=== PATIENT | male | born 1955 | race American Indian/Alaskan Native ===

== ENCOUNTER 2016-05-29 16:27 | Inpatient (IN) | payer MEDICARE ==
[2016-05-29 17:19] LABS: Basophils % (Auto) 1.1 % (0.0-1.8); Eosinophils % (Auto) 1.7 % (0.0-4.3); Mean Corpuscular HGB Conc 31 % (32-34); Platelet Count 165 K/mm3 (140-440); Red Blood Count 5.73 M/mm3 (3.65-5.03); Red Cell Distribution Width 19.1 % (13.2-15.2); White Blood Count 7.4 K/mm3 (4.5-11.0)
[2016-05-29] MEDS ORDERED: BABY ASPIRIN PO ONE (17:19)
[2016-05-29 17:20] LABS: Anion Gap 20 mmol/L; Blood Urea Nitrogen 12 mg/dL (9-20); Calcium 8.9 mg/dL (8.4-10.2); Carbon Dioxide 26 mmol/L (22-30); Chloride 103.4 mmol/L (98-107); Glucose 62 mg/dL (75-100); Hematocrit 37.5 % (35.5-45.6); Hemoglobin 11.4 gm/dl (11.8-15.2); Mean Corpuscular Hemoglobin 20 pg (28-32); Mean Corpuscular Volume 66 fl (84-94); Potassium 4.1 mmol/L (3.6-5.0); Sodium 145 mmol/L (137-145)
--- NOTE | 2016-05-29 17:24 | Emergency Department Report ---
Chief Complaint: Chest Pain Stated Complaint: CHEST PAINS Time Seen by Provider: 05/29/16 17:18 - HPI History of Present Illness: PT c/o chest pain x 2 hours. PT states he was riding in a van when the pain started. PT states he has a hx of htn and is currently on lisinopril. + tobacco, + dm type 2. PT states he had a nuclear stress test "years ago" PT states he is from [place] but he is in a treatment program here. PT states he just got a local PCP. - ROS Review of Systems: + headache + cp + sob - dizziness + nausea - swelling to extremities - Exam Vital Signs: Vital Signs 05/29/16 16:37 Temperature 97.8 F Pulse Rate 73 Respiratory 22 Rate Blood Pressure 189/109 O2 Sat by Pulse 100 Oximetry Physical Exam: PT looks well, non toxic. RRR lungs diminished gulshan MSE screening note: Focused history and physical exam performed. Due to findings the following was ordered: ED Medical Decision Making - Lab Data Result diagrams: 05/29/16 16:49 ED Disposition for MSE Condition: Stable
[2016-05-29 18:22] LABS: INR 0.9 (0.87-1.13)
[2016-05-29 18:23] LABS: Partial Thromboplastin Time 30.8 Sec. (24.2-36.6)
[2016-05-29] MEDS ORDERED: MORPHINE IV ONE (19:25)
[2016-05-29] MEDS ORDERED: NITRO-BID 2% TP ONE (19:25)
[2016-05-29] MEDS ORDERED: ZOFRAN IV ONE (19:26)
--- NOTE | 2016-05-29 19:27 | Emergency Department Report ---
ED Chest Pain HPI - General Chief Complaint: Chest Pain Stated Complaint: CHEST PAINS Time Seen by Provider: 05/29/16 17:18 Source: patient Mode of arrival: Ambulatory Limitations: No Limitations - History of Present Illness Initial Comments: 60-year-old male with a past medical history diabetes him hypertension, and tobacco use presents to the hospital with complaints of chest pain. Symptoms started 1 hour prior to arrival while sitting in a van. Described as it elevated sitting on his chest with a mild sharp component. Significant pain lasted for several seconds but now patient has a persistent heaviness to his chest. Positive so she shortness of breath without nausea, vomiting, or diaphoresis. Patient does not take aspirin daily today received aspirin in the ED. Patient reports that he had a stress test and cardiac cath performed about 5 years ago and denies receiving a stent or angioplasty. 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 He denies history of PE/DVT, calf tenderness, edema, or recent prolonged travel. - Related Data Home Medications Medication Instructions Recorded Confirmed Last Taken Norvasc 10 mg PO DAILY 07/13/14 02/15/16 Unknown Esomeprazole Magnesium [NexIUM] 40 mg PO QDAY 02/15/16 02/15/16 02/15/16 FLUoxetine [PROzac] 20 mg PO QDAY 02/15/16 02/15/16 02/15/16 Lisinopril [Zestril TAB] 1 tab PO CHRISTOPH 02/15/16 02/15/16 02/15/16 metFORMIN [Glucophage] 500 mg PO QDAY 02/15/16 02/15/16 02/15/16 traZODone [Desyrel] 100 mg PO QHS 02/15/16 02/15/16 02/14/16 Previous Rx's Medication Instructions Recorded Last Taken Type Albuterol Sulfate [Ventolin HFA] 2 puff IH Q4H PRN #1 hfa.aer.ad 07/13/14 Unknown Rx Hydralazine HCl [Apresoline TAB] 50 mg PO BID #60 tab 02/15/16 Unknown Rx Lisinopril/Hydrochlorothiazide 1 tab PO QDAY #30 tab 02/15/16 Unknown Rx [Zestoretic 20-12.5 mg] Allergies Allergy/AdvReac Type Severity Reaction Status Date / Time No Known Allergies Allergy Unverified 07/13/14 07:02 CIPRIANO score - Cipriano Score Age > 65: (0) No Aspirin use within the Past 7 Days: (0) No 3 or more CAD Risk Factors: (1) Yes 2 or more Angina events in past 24 hrs: (0) No Known CAD with more than 50% Stenosis: (0) No Elevated Cardiac Markers: (0) No ST Deviation Greater than 0.5mm: (0) No CIPRIANO Score: 1 ED Review of Systems ROS: Stated complaint: CHEST PAINS Other details as noted in HPI Comment: All other systems reviewed and negative Other: Constitutional: No fevers chills Eyes: No eye pain visual changes ENT: No ear pain or throat pain Neck: Denies pain Respiratory: Denies cough wheezing s Cardiovascular: as per hpi GI: Denies abdominal pain, nausea, vomiting, diarrhea : Denies dysuria, urinary frequency, or urgency Musculoskeletal: Denies back pain, joint swelling Skin: Denies rash, lesions, erythema Neurologic: Denies headache, numbness, weakness Psychiatric: Denies suicidal ideation, hallucinations Hematological/lymphatic: Denies easy bruising, lymphadenopathy ED Past Medical Hx - Past Medical History Previous Medical History?: Yes Hx Hypertension: Yes Hx Diabetes: Yes - Surgical History Past Surgical History?: Yes Additional Surgical History: Hernia repair. gallbladder. turk - Social History Smoking Status: Current Every Day Smoker Substance Use Type: None - Medications Home Medications: Home Medications Medication Instructions Recorded Confirmed Last Taken Type Albuterol Sulfate [Ventolin HFA] 2 puff IH Q4H PRN #1 hfa.aer.ad 07/13/14 Unknown Rx Norvasc 10 mg PO DAILY 07/13/14 02/15/16 Unknown History Esomeprazole Magnesium [NexIUM] 40 mg PO QDAY 02/15/16 02/15/16 02/15/16 History FLUoxetine [PROzac] 20 mg PO QDAY 02/15/16 02/15/16 02/15/16 History Hydralazine HCl [Apresoline TAB] 50 mg PO BID #60 tab 02/15/16 Unknown Rx Lisinopril [Zestril TAB] 1 tab PO CHRISTOPH 02/15/16 02/15/16 02/15/16 History Lisinopril/Hydrochlorothiazide 1 tab PO QDAY #30 tab 02/15/16 Unknown Rx [Zestoretic 20-12.5 mg] metFORMIN [Glucophage] 500 mg PO QDAY 02/15/16 02/15/16 02/15/16 History traZODone [Desyrel] 100 mg PO QHS 02/15/16 02/15/16 02/14/16 History ED Physical Exam - General Limitations: No Limitations - Other Other exam information: General: No limitations, patient is alert in no acute distress Head exam: Atraumatic, normocephalic Eyes exam: Normal appearance, pupils equal reactive to light, extraocular movements intact ENT: Moist mucous membrane, normal oropharynx Neck exam: Normal inspection, full range of motion, no meningismus nontender Respiratory exam: Clear to auscultation bilateral, no wheezes, rales, crackles Cardiovascular: Normal rate and rhythm, normal heart sounds Abdomen: Soft, nondistended, and nontender, with normal bowel sounds, no rebound, or guarding Extremity: Full range of motion normal inspection no deformity Back: Normal Inspection, full range of motion, no tenderness Neurologic: Alert, oriented x3, cranial nerves intact, no motor or sensory deficit Psychiatric: normal affect, normal mood Skin: Warm, dry, intact ED Course Vital Signs 05/29/16 05/29/16 05/29/16 16:37 17:16 17:30 Temperature 97.8 F Pulse Rate 73 74 82 Respiratory 22 14 16 Rate Blood Pressure 189/109 O2 Sat by Pulse 100 95 Oximetry 05/29/16 05/29/16 05/29/16 17:46 18:00 18:16 Temperature Pulse Rate 80 73 82 Respiratory 17 14 18 Rate Blood Pressure 183/83 O2 Sat by Pulse 97 94 95 Oximetry 05/29/16 05/29/16 05/29/16 18:27 18:30 18:46 Temperature Pulse Rate 93 H 78 Respiratory 18 15 Rate Blood Pressure 173/81 O2 Sat by Pulse 94 100 Oximetry 05/29/16 05/29/16 05/29/16 19:00 19:16 19:30 Temperature Pulse Rate 68 71 71 Respiratory Rate Blood Pressure O2 Sat by Pulse 100 100 100 Oximetry 05/29/16 19:45 Temperature Pulse Rate 72 Respiratory 23 Rate Blood Pressure 178/110 O2 Sat by Pulse 100 Oximetry - Reevaluation(s) Reevaluation #1: 05/29/16 19:45 Patient stable. Nitro paste, morphine, and Zofran ordered ED Medical Decision Making - Lab Data Result diagrams: 05/29/16 16:49 05/29/16 16:49 Lab Results 05/29/16 05/29/16 05/29/16 Range/Units 16:49 16:49 17:47 WBC 7.4 (4.5-11.0) K/mm3 RBC 5.73 H (3.65-5.03) M/mm3 Hgb 11.4 L (11.8-15.2) gm/dl Hct 37.5 (35.5-45.6) % MCV 66 L (84-94) fl MCH 20 L (28-32) pg MCHC 31 L (32-34) % RDW 19.1 H (13.2-15.2) % Plt Count 165 (140-440) K/mm3 Lymph % (Auto) 28.2 (13.4-35.0) % Leslie % (Auto) 13.0 H (0.0-7.3) % Eos % (Auto) 1.7 (0.0-4.3) % Baso % (Auto) 1.1 (0.0-1.8) % Lymph # 2.1 (1.2-5.4) K/mm3 Leslie # 1.0 H (0.0-0.8) K/mm3 Eos # 0.1 (0.0-0.4) K/mm3 Baso # 0.1 (0.0-0.1) K/mm3 Seg Neutrophils % 56.0 (40.0-70.0) % Seg Neutrophils # 4.1 (1.8-7.7) K/mm3 PT (12.2-14.9) Sec. INR (0.87-1.13) APTT (24.2-36.6) Sec. Sodium 145 (137-145) mmol/L Potassium 4.1 (3.6-5.0) mmol/L Chloride 103.4 (98-107) mmol/L Carbon Dioxide 26 (22-30) mmol/L Anion Gap 20 mmol/L BUN 12 (9-20) mg/dL Creatinine 1.1 (0.8-1.5) mg/dL Estimated GFR > 60 ml/min BUN/Creatinine Ratio 10.90 % Glucose 62 L (75-100) mg/dL Calcium 8.9 (8.4-10.2) mg/dL Troponin T < 0.010 (0.00-0.029) ng/mL NT-Pro-B Natriuret Pep 79.16 (0-900) pg/mL 05/29/16 Range/Units 17:47 WBC (4.5-11.0) K/mm3 RBC (3.65-5.03) M/mm3 Hgb (11.8-15.2) gm/dl Hct (35.5-45.6) % MCV (84-94) fl MCH (28-32) pg MCHC (32-34) % RDW (13.2-15.2) % Plt Count (140-440) K/mm3 Lymph % (Auto) (13.4-35.0) % Leslie % (Auto) (0.0-7.3) % Eos % (Auto) (0.0-4.3) % Baso % (Auto) (0.0-1.8) % Lymph # (1.2-5.4) K/mm3 Leslie # (0.0-0.8) K/mm3 Eos # (0.0-0.4) K/mm3 Baso # (0.0-0.1) K/mm3 Seg Neutrophils % (40.0-70.0) % Seg Neutrophils # (1.8-7.7) K/mm3 PT 12.0 L (12.2-14.9) Sec. INR 0.90 (0.87-1.13) APTT 30.8 (24.2-36.6) Sec. Sodium (137-145) mmol/L Potassium (3.6-5.0) mmol/L Chloride (98-107) mmol/L Carbon Dioxide (22-30) mmol/L Anion Gap mmol/L BUN (9-20) mg/dL Creatinine (0.8-1.5) mg/dL Estimated GFR ml/min BUN/Creatinine Ratio % Glucose (75-100) mg/dL Calcium (8.4-10.2) mg/dL Troponin T (0.00-0.029) ng/mL NT-Pro-B Natriuret Pep (0-900) pg/mL - EKG Data -: EKG Interpreted by Me (normal sinus rhythm with no ST elevation AR) - EKG Data When compared to previous EKG there are: no significant change (compared to previous EKG) - Radiology Data Radiology results: report reviewed (chest x-ray: Bibasilar linear atelectasis versus scarring. Mild cardiac enlargement) - Medical Decision Making Patient requires admission to the hospital for further cardiac workup. No Signs of STEMI at this time and initial cardiac enzymes negative - Differential Diagnosis AR, unstable angina, atypical chest pain, PE, dissection Critical Care Time: No Critical care attestation.: If time is entered above; I have spent that time in minutes in the direct care of this critically ill patient, excluding procedure time. ED Disposition Clinical Impression: Chest pain, Uncontrolled hypertension, Tobacco use, Diabetes Disposition: OP ADMITTED IP TO THIS HOSP Is pt being admited?: Yes Condition: Stable Time of Disposition: 19:27 (Dr mcmahon . . . request Dr. Villarreal admission)
--- NOTE | 2016-05-29 20:01 | Admit Criteria Form ---
Admission Criteria Documentation: CHEST PAIN Clinical Indications for Admission to Inpatient Care (Place 'X' for any and all applicable criteria): Admission is indicated for chest pain and ANY ONE of the following(1)(2)(3)(4)(5 ): [ ]I. Angina with acute coronary syndrome (Also use Myocardial Infarction or Angina guideline) [ ]II. Hemodynamic instability X ]III. Angina needing acute intervention as indicated by ALL of the following( 11)(12): [ X]a) Unstable angina is present as indicated by angina that is ANY ONE of the following: [X ]i) New onset [ ]ii) Nocturnal [ ]iii) Prolonged at rest [ ]iv) Progressive [ X]b) Angina warrants acute intervention as indicated by ANY ONE of the following: [ ]i) Recurrent angina (e.g, not responding as previously to treatment) [ ]ii) Angina at rest or with low-level activities despite initial medical therapy [ ]iii) New or presumably new ST-segment depression on ECG [ ]iv) Signs or symptoms of heart failure (eg, dyspnea, pulmonary edema) [ ]v) New or worsening mitral regurgitation [ ]vi) Hemodynamic instability [ ]vii) Dangerous arrhythmia (eg, sustained ventricular tachycardia) [ ]viii) History of percutaneous coronary intervention within 6 months [ ]ix) History of coronary artery bypass graft surgery [ ]x) CIPRIANO risk score of 2 or greater[A] [X ]xi) History of Diabetes(14) [ ]xii) High-risk cardiac ischemia findings on noninvasive testing (e.g, echocardiogram, treadmill testing, nuclear scan) [ ]xiii) Chronic renal insufficiency (ie, estimated GFR less than 60 mL/min/1.732m) [ ]xiv) Left ventricular ejection fraction less than 40% [ ]IV. Evidence of AK (eg, cardiac biomarkers positive, ST-segment elevation on ECG) also use Myocardial Infarction Criteria Form. [ ]V. Pulmonary edema [ ]. Respiratory distress [ ]VII. Chest pain indicative of serious diagnosis other than coronary artery disease (eg, aortic dissection) [ ]VIII. Contraindications and/or Inappropriate clinical situations for Observational Care in patients with Chest Pain, when ANY ONE of the following is required: [ ]a) Patient with risk factor for pulmonary embolism, acute coronary syndrome and myocardial infarction (18) [ ]b) Patient with Pulmonary embolism require an average LOS of 4.3 days, therefore emergency department observation management is inappropriate 18,23 [ ]c) Painful condition/s in the elderly, have the highest rate of recidivism after emergency department observation management (10.8%) 20,21,22 [ ]d) Elevated cardiac biomarker requires intensive and exhaustive care (19) [X ]IX. General contraindications and/or Inappropriate clinical situations for Observational Care in patients with Chest Pain, when ANY ONE of the following is required: [ ]a) Prediction of prolongation of LOS based on ANY ONE of the following may be considered as a contraindication for observational care 2, 3, 4, 5, 6, 7, 8, 9, 10, 11 [ ]i) Age > 65 yrs. [ ]ii) Patient arriving by ambulance [ ]iii) Patient with high acuity [ ]iv) Patient requiring vital sign monitoring [ ]v) Patient on IV medication [X ]b) Systolic blood pressures 180mmHg 3,12 [ ]c) Patient with altered mental status including delirium and other alteration of consciousness, (3) [ ]d) Patient whose discharge disposition will be to a [place] [facility] home or rehabilitation home should not be managed in Emergency Department Observation Unit. CMS rule requires 3 days hospital stay before such placement. 3,13 [ ]e) Patient with failure to thrive due to broad array of etiologies 3,16,17 [ ]f) Inability to ambulate 3,14 Extended stay beyond goal length of stay may be needed for (1)(28): [ ]a) Specific condition diagnosed after evaluation (eg, pulmonary embolism, aortic dissection) [ ]b) Unstable angina [ ]c) Continued suspicion of acute coronary syndrome with inability to complete needed cardiac evaluation (eg, patient clinically unable to undergo stress testing) [ ]d) Myocardial infarction (Contents from ANGINA and CHEST PAIN clinical indications for admission to inpatient care have been integrated in this form) The original [employer] content created by [employer] has been revised. The portions of the content which have been revised are identified through the use of italic text or in bold, and [facility] has neither reviewed nor approved the modified material. All other unmodified content is copyright [employer]. Please see references footnoted in the original [facility] edition 2016 Admission Criteria Met: Yes
--- NOTE | 2016-05-29 20:10 | XRay Report ---
FINAL REPORT EXAM: XR CHEST ROUTINE 2V HISTORY: chest pain TECHNIQUE: PA and lateral views of the chest PRIORS: None. FINDINGS: Lines, tubes, and devices: N/A Lungs and pleura: Trachea is normal in position. Mild linear markings in each lung base and the lingula are probably atelectasis versus scarring. There is no evidence for focal consolidation, pleural effusion, vascular congestion, or pneumothorax. Cardiomediastinal silhouette: Cardiac size is mildly enlarged. Aorta is unremarkable.. Other: Bony structures are intact. IMPRESSION: Bibasilar linear atelectasis versus scarring. Mild cardiac enlargement.
[2016-05-29] MEDS ORDERED: MORPHINE IV PRN (22:18)
[2016-05-29] MEDS ORDERED: D50W (25GM) IV PRN (22:18)
[2016-05-29] MEDS ORDERED: MILK OF MAGNESIA PO PRN (22:18)
[2016-05-29] MEDS ORDERED: DULCOLAX PR PRN (22:18)
[2016-05-29] MEDS ORDERED: TYLENOL PO PRN (22:18)
[2016-05-29] MEDS ORDERED: ZOFRAN IV PRN (22:18)
[2016-05-29] MEDS ORDERED: SODIUM CHLORIDE FLUSH SYRINGE 10 ML IV PRN (22:18)
--- NOTE | 2016-05-29 22:21 | History and Physical Report ---
History of Present Illness Date of examination: 05/29/16 Date of admission: 05/29/16 19:27 History of present illness: 60 -year-old man with a history of hypertension, diabetes comes emergency room with complaints of chest pain. Pain is in the epigastric area which she described as a weight on his chest, intensity 7/10, constant, no radiation, worse with breathing. Admits to shortness of breath, palpitation, no nausea vomiting, diaphoresis Patient denies cough, abdominal pain, hematochezia, dysuria, frequency, focal weakness, dysarthria, fever chills, polydipsia polyuria, hot or cold intolerance , easy bruisability, or rash or bleeding from mucosal membrane, rhinorrhea, epistaxis, earache, tinnitus, blurry vision, eye discharge, anxiety, depression. Other review of systems negative PAST SURGICAL HISTORY: Cholecystectomy, hernia repair, TURP SOCIAL HISTORY:Smoke quadrant pack a day, no alcohol or drugs FAMILY HISTORY: Hypertension Medications and Allergies Allergies Allergy/AdvReac Type Severity Reaction Status Date / Time No Known Allergies Allergy Unverified 07/13/14 07:02 Home Medications Medication Instructions Recorded Confirmed Last Taken Type Albuterol Sulfate [Ventolin HFA] 2 puff IH Q4H PRN #1 hfa.aer.ad 07/13/14 1 Day Ago Rx amLODIPine [Norvasc] 10 mg PO DAILY 07/13/14 05/30/16 1 Day Ago History Esomeprazole Magnesium [NexIUM] 40 mg PO QDAY 02/15/16 05/30/16 1 Day Ago History FLUoxetine [PROzac] 20 mg PO QDAY 02/15/16 05/30/16 1 Day Ago History Hydralazine HCl [Apresoline TAB] 50 mg PO BID #60 tab 02/15/16 05/30/16 1 Day Ago Rx Lisinopril [Zestril TAB] 1 tab PO CHRISTOPH 02/15/16 05/30/16 1 Day Ago History Lisinopril/Hydrochlorothiazide 1 tab PO QDAY #30 tab 02/15/16 05/30/16 1 Day Ago Rx [Zestoretic 20-12.5 mg] metFORMIN [Glucophage] 500 mg PO QDAY 02/15/16 05/30/16 1 Day Ago History traZODone [Desyrel] 100 mg PO QHS 02/15/16 05/30/16 1 Day Ago History Aspirin [Aspirin BABY CHEW TAB] 81 mg PO QDAY tab.chew 05/30/16 Unknown Rx Hydrochlorothiazide [HCTZ] 12.5 mg PO QDAY capsule 05/30/16 Unknown Rx amLODIPine [Norvasc] 10 mg PO DAILY tablet 05/30/16 Unknown Rx hydrALAZINE [Apresoline TAB] 50 mg PO BID #10 tab 05/30/16 Unknown Rx Exam - Physical Exam Narrative exam: Gen. appearance: Patient lying in bed, no apparent distress HEENT: Normocephalic, atraumatic, pupils equally round and reactive to light, extraocular movement intact, and no sclericterus,. No JVD or thyromegaly or nodule,neck supple, no carotid bruit ,mucous membranes moist, no exudate or erythema Heart: S1, S2, regular rate and rhythm Lungs: Clear to auscultation bilaterally, breathing comfortable Abdomen: Positive bowel sounds, nontender, nondistended, no organomegaly Extremity: No edema, cyanosis, clubbing Skin: No rash, nodules, warm, dry Neuro: Oriented 3, cranial nerves II-12 intact, speech is fluent, motor and sensory intact - Constitutional Vitals: Temp Pulse Resp BP Pulse Ox 97.8 F 73 18 156/83 98 05/29/16 16:37 05/29/16 21:55 05/29/16 21:55 05/29/16 21:55 05/29/16 21:55 Results - Labs CBC & Chem 7: 05/30/16 07:10 05/30/16 07:10 - Imaging and Cardiology EKG: image reviewed Chest x-ray: image reviewed Assessment and Plan Hypertensive urgency Chest pain Diabetes type 2 Admits medicine Start IV hydralazine as needed for blood pressure control Check cardiac enzymes, lipid profile, d-dimer, stress test Check fingersticks and initiate insulin sliding scale Start aspirin, morphine Start DVT prophylaxis
[2016-05-29] MEDS ORDERED: PROAIR IH PRN (23:13)
[2016-05-29] MEDS ORDERED: APRESOLINE IV PRN (23:13)
[2016-05-29] MEDS ORDERED: PROVENTIL IH PRN (23:28)
[2016-05-30 02:20] LABS: Creatine Kinase MB 3.9 ng/mL (0.0-4.0)
[2016-05-30 07:38] LABS: Basophils % (Auto) 1.1 % (0.0-1.8); Eosinophils % (Auto) 2.1 % (0.0-4.3); Hemoglobin 10.2 gm/dl (11.8-15.2); Mean Corpuscular HGB Conc 31 % (32-34); Platelet Count 142 K/mm3 (140-440); Red Blood Count 5.05 M/mm3 (3.65-5.03); Red Cell Distribution Width 18.6 % (13.2-15.2); White Blood Count 6.6 K/mm3 (4.5-11.0)
[2016-05-30 07:40] LABS: Mean Corpuscular Hemoglobin 20 pg (28-32); Mean Corpuscular Volume 65 fl (84-94)
[2016-05-30 07:47] LABS: Anion Gap 16 mmol/L; BUN/Creatinine Ratio 12.72; Blood Urea Nitrogen 14 mg/dL (9-20); Calcium 8.3 mg/dL (8.4-10.2); Carbon Dioxide 25 mmol/L (22-30); Chloride 102.4 mmol/L (98-107); Glucose 104 mg/dL (75-100); Potassium 4.3 mmol/L (3.6-5.0); Sodium 139 mmol/L (137-145)
[2016-05-30 07:48] LABS: Creatine Kinase MB 3.2 ng/mL (0.0-4.0)
[2016-05-30] MEDS: NOVOLOG SUB-Q SCH ×2 (09:08→13:55)
[2016-05-30] MEDS ORDERED: LEXISCAN IV ONE ×2 (09:13→09:20)
[2016-05-30] MEDS ORDERED: BABY ASPIRIN PO SCH (10:00)
[2016-05-30] MEDS ORDERED: PROzac PO SCH (10:00)
[2016-05-30] MEDS ORDERED: HCTZ PO SCH (10:00)
[2016-05-30] MEDS ORDERED: NORVASC PO SCH (10:00)
[2016-05-30] MEDS ORDERED: ZESTRIL PO SCH ×2 (10:00→14:00)
[2016-05-30] MEDS ORDERED: PROTONIX PO SCH (10:00)
--- NOTE | 2016-05-30 12:25 | Treadmill Report ---
INDICATION: Chest pain. ORDERING PHYSICIAN: Nancy Villarreal MD FINDINGS: There is no scintigraphic evidence of myocardial ischemia. There is evidence of a small fixed inferior wall defect. The left ventricle is normal in size. There is normal wall motion and wall thickening. The left ventricular ejection fraction is measured at 48%. CONCLUSION: 1. No scintigraphic evidence of myocardial ischemia. 2. Small fixed inferior wall defect likely due to diaphragmatic attenuation. 3. Normal wall motion and wall thickening with the left ventricular ejection fraction measured at 48%. 4. This is a low risk myocardial perfusion scan associated with 1 year mortality of less than 1%. JOB# [id number] NKECHI/TYLER
--- NOTE | 2016-05-30 13:35 | Discharge Summary ---
Providers - Providers Date of Admission: 05/29/16 19:27 Attending physician: MARCY PRATER 05/29/16 Consult to Cardiac Rehabilitation [CONS] Routine Reason For Exam: Phase I Primary care physician: MAGED BARRY Hospitalization Condition: Stable Hospital course: 60 YO Male admitted for chest pain and accelerated htn. Pt treated IAW chest pain protocol. Pt underwent serial cardiac enzyme evaluation, ekg, and telemetry monitoring which were not indicative of acute ischemia. Pt underwent stress test which was negative for ischemia. D dimer was normal. Pt resumed on home antihypertensive medication. Pt convalesced well during hospital course. Pt symptoms resolved with therapy. Pt medically optimized and back to usual state of health. Pt discharged home and instructed to f/u pcp 1wk for f/u care and age/risk factor appropriate screenings. 35 minutes dedicated to patient discharge and education. Disposition: DISCHARGED TO HOME OR SELFCARE - Discharge Diagnoses (1) GERD (gastroesophageal reflux disease) Status: Acute Qualifiers: Esophagitis presence: E (2) Chest pain Status: Acute Qualifiers: Chest pain type: C (3) Diabetes Status: Acute Qualifiers: Diabetes mellitus type: D Diabetes mellitus complication status: D Diabetes mellitus complication detail: D Diabetic retinopathy severity: D Proliferative retinopathy type: P Diabetes mellitus macular edema: D Diabetes mellitus prison insulin use: D Laterality: L Chronic kidney disease stage: C (4) Uncontrolled hypertension Status: Acute Core Measure Documentation - Palliative Care Palliative Care/ Comfort Measures: Not Applicable - Core Measures Any of the following diagnoses?: none Exam - Constitutional Vitals: Temp Pulse Resp BP Pulse Ox 97.7 F 66 18 162/95 100 05/30/16 13:25 05/30/16 13:25 05/30/16 13:25 05/30/16 13:25 05/30/16 13:25 General appearance: Present: no acute distress, well-nourished - EENT Eyes: Present: PERRL ENT: hearing intact, clear oral mucosa - Neck Neck: Present: supple, normal ROM - Respiratory Respiratory effort: normal Respiratory: bilateral: CTA - Cardiovascular Heart Sounds: Present: S1 & S2. Absent: rub, click - Extremities Extremities: pulses symmetrical, No edema Peripheral Pulses: within normal limits - Abdominal General gastrointestinal: Present: soft, non-tender, non-distended, normal bowel sounds Male genitourinary: Present: normal - Integumentary Integumentary: Present: clear, warm, dry - Musculoskeletal Musculoskeletal: gait normal, strength equal bilaterally - Psychiatric Psychiatric: appropriate mood/affect, intact judgment & insight - Neurologic Neurologic: CNII-XII intact, moves all extremities Plan Activity: advance as tolerated Special Instructions: record daily weights, record daily BP diary Follow up with: MAGED BARRY MD [Primary Care Provider] - 3-5 Days Prescriptions: hydrALAZINE [Apresoline TAB] 50 mg PO BID #10 tab
[2016-05-30 13:55] VITALS: BP 178/108
[2016-05-30] MEDS ORDERED: NON-FORMULARY (Hydralazine Hcl [Apresoline Tab] 50 MG) PO SCH (14:00)
[2016-05-30] MEDS ORDERED: DESYREL PO SCH (22:00)
[2016-05-30] MEDS ORDERED: APRESOLINE PO SCH (22:00)
--- NOTE | 2016-06-04 08:29 | Query- Chest Pain ---
Artemio Melo Date:_06/04/16 Retail Sales Specialist/CDS:Zainab Wilhelm/There Phone#:_[phone] Exercise your independent professional judgment when responding to query. Questions asked do not imply a particular answer is desired or expected. We greatly appreciate your clarification on this issue. Clinical Documentation States: 60 YO Male admitted for chest pain and accelerated htn. Pt treated IAW chest pain protocol. Pt underwent serial cardiac enzyme evaluation, ekg, and telemetry monitoring which were not indicative of acute ischemia. Pt underwent stress test which was negative for ischemia. D dimer was normal Clinical Findings Show: serial cardiac enzyme evaluation, ekg, and telemetry monitoring which were not indicative of acute ischemia. Pt underwent stress test which was negative for ischemia Please document the etiology of Chest Pain: [ ] Myocardial Infarction [ ] Pneumonia [ ] Mediastinitis [ ] Costochondritis [ ] Pulmonary Embolism [ ] Coronary Artery Disease [ x] GERD [ ] Other: [ ] Comment/Explanation: Present on Admission: [ ] Yes (Y) [ ] Clinically undeterminable (W) [ ] No(N) Please document response in your Progress Notes and/or Discharge Summary and indicate if the condition was present on admission. LEANA
== END 2016-05-30 14:41 | disposition home or self-care (01) | DRG 392 ==
LOC: ED 16:27 → 4A 19:27
PROVIDERS: ADMIT Internal Medicine; ATTEND Internal Medicine
DX: K21.9 Gastro-esophageal reflux disease without esophagitis (principal); I16.0 Hypertensive urgency; E11.9 Type 2 diabetes mellitus without complications; I10 Essential (primary) hypertension; F17.210 Nicotine dependence, cigarettes, uncomplicated; Z79.84 Long term (current) use of oral hypoglycemic drugs; Z90.49 Acquired absence of other specified parts of digestive tract; Z82.49 Family history of ischemic heart disease and other diseases of the circulatory system
CPT/HCPCS: 36415; 71020; 78452; 80048; 80061; 82550; 82553; 82962; 83880; 84484; 85025; 85379; 85610; 85730; 93005; 93010; 93017; 94760; 96374; 96375; A9502; J2270; J2405; J2785